=== PATIENT | male | born 1990 | race Caucasian/White ===

== ENCOUNTER 2017-11-13 16:57 | Emergency (ER) | payer BC ==
[2017-11-13 17:20] VITALS: BP 110/74; PULSE 77; O2SAT 99
--- NOTE | 2017-11-13 17:38 | ERPHSYRPT ---
- History of Present Illness Time Seen by Provider: 11/13/17 17:25 Source: patient, family Exam Limitations: no limitations Patient Subjective Stated Complaint: sore throat and right lower tooth pain since last mon. was seen at clinic in [place] on monday and was dx with strep throat and given augmentin. states is not getting any better and tooth hurts worse today. also has blisters in mouth since last . Triage Nursing Assessment: ambulated to room holding right side of mouth. skin w/d, color normal, resp normal. Physician History: The patient is a 27-year-old male with his grandmother complaining that he had a fever and a sore throat last Monday and . The fever broke but he still has a sore throat. [facility] [place] [facility] and was given Augmentin for presumed strep throat. A rapid strep test was not done at the time. His throat still hurts and he has difficulty swallowing due to the pain. He has been taking Tylenol 1000 mg every 8 hours and ibuprofen 800 mg every 8 hours. He has not been gargling. His past medical history is unremarkable. Timing/Duration: gradual onset, days (5) Prearrival Treatment: prescription meds Modifying Factors: Improves With: nothing Associated Symptoms: fever, poor solids intake, sore throat Allergies/Adverse Reactions: No Known Drug Allergies Allergy (Unverified 11/13/17 17:12) Home Medications: Amox Tr/Potass Clav. 875 mg [Augmentin 875-125 Tablet] 875 mg PO BID 11/13 [History] Hx Tetanus, Diphtheria Vaccination/Date Given: No Hx Influenza Vaccination/Date Given: No Hx Pneumococcal Vaccination/Date Given: No - Review of Systems Constitutional: Fever Eyes: No Symptoms Ears, Nose, & Throat: Throat Pain Respiratory: No Cough, No Dyspnea Cardiac: No Chest Pain, No Edema, No Syncope Abdominal/Gastrointestinal: No Abdominal Pain, No Nausea, No Vomiting, No Diarrhea Genitourinary Symptoms: No Dysuria Musculoskeletal: No Back Pain, No Neck Pain Skin: No Rash Neurological: No Dizziness, No Focal Weakness, No Sensory Changes Psychological: No Symptoms Endocrine: No Symptoms Hematologic/Lymphatic: No Symptoms Immunological/Allergic: No Symptoms All Other Systems: Reviewed and Negative - Past Medical History Pertinent Past Medical History: Yes Other Medical History: anorexia - Past Surgical History Past Surgical History: No - Social History Smoking Status: Never smoker Drug Use: none Patient Lives Alone: No - Nursing Vital Signs Nursing Vital Signs: Initial Vital Signs Temperature 98.9 F 11/13/17 17:06 Pulse Rate 77 11/13/17 17:06 Respiratory Rate 16 11/13/17 17:06 Blood Pressure 110/74 11/13/17 17:06 O2 Sat by Pulse Oximetry 99 11/13/17 17:06 Pain Scale Pain Intensity 10 - Physical Exam General Appearance: no apparent distress, alert Eye Exam: bilateral eye: normal inspection Ear Exam: bilateral ear: auricle normal Nasal Exam: normal inspection Throat Exam: tonsillar exudate, tonsillar swelling (There is tonsillar swelling bilaterally and bilateral tonsillar exudate. There is erythema of the tonsils and pharynx. There is erythema and tiny papules overlying the gum of the right lower wisdom tooth region.) Neck Exam: supple Cardiovascular/Respiratory Exam: normal breath sounds, regular rate/rhythm Abdominal Exam: non-tender, soft Neurologic Exam: alert, oriented x 3, sensation nml, No motor deficits Skin Exam: normal color, warm, dry SpO2 Interpretation: normal SpO2: 99 Oxygen Delivery: Room Air Ordered Tests: Active Orders 24 hr Category Date Time Status CULTURE, THROAT Stat Lab 11/13/17 17:45 Received STREP SCREEN-BETA A Stat Lab 11/13/17 17:45 Completed Medication Summary Discontinued Medications Generic Name Dose Route Start Last Admin Trade Name [place] PRN Reason Stop Dose Admin Ketorolac Tromethamine 60 mg 11/13/17 17:43 11/13/17 17:50 Toradol 30 Mg Injection IM 11/13/17 17:44 60 mg STAT ONE Administration Ketorolac Tromethamine Confirm 11/13/17 17:49 Toradol 30 Mg Injection Administered 11/13/17 17:50 Dose 60 mg .ROUTE [facility] Lab/Rad Data: Laboratory Results 11/13/17 Range/Units 17:45 Streptococcus Screen NEGATIVE (Negative) - Departure Time of Disposition: 18:27 Departure Disposition: Home Clinical Impression: Pharyngitis Condition: Stable Critical Care Time: No Referrals: KHADIJAH JONES MD [Primary Care Provider] - Additional Instructions: You have pharyngitis. The rapid strep test was negative. Your pharyngitis is caused by a virus, but I would like for you to continue taking the antibiotic as prescribed earlier. You were given Toradol 60 mg by IM in the ER for pain. Take etodolac 400 mg every 8 hours as needed. Gargle with warm salt water and Chloraseptic [id number] as often as needed. Follow-up in one to 2 days if no improvement. Prescriptions: Etodolac 400 mg [Lodine 400 mg] 400 mg PO Q8H PRN PRN #12 tablet PRN Reason: Pain
[2017-11-13] MEDS ORDERED: TORAdol 30 mg Injection ONE (17:49)
[2017-11-13] MEDS: TORAdol 30 mg Injection IM ONE (17:50)
== END 2017-11-13 18:54 | disposition home or self-care (01) ==
LOC: ED 16:57
DX: J02.9 Acute pharyngitis, unspecified (principal)
CPT/HCPCS: 87070; 87430; 96372; 99283; J1885